=== PATIENT | male | born 1955 | race Caucasian/White ===

== ENCOUNTER 2016-12-17 22:56 | Emergency (ER) | payer OTHER ==
[~2016-12-17] VITALS: Ht 182.9 cm; Wt 96.8 kg
[2016-12-17 23:04] VITALS: BP 157/95
[2016-12-17] MEDS ORDERED: DEXAMETHASONE 4 MG TABLET ONE (23:58)
[2016-12-18] MEDS ORDERED: DEXAMETHASONE 4 MG TABLET PO ONE
== END 2016-12-18 00:42 | disposition home or self-care (01) ==
LOC: ED 23:19
DX: S16.1XXA Strain of muscle, fascia and tendon at neck level, initial encounter (principal); S50.02XA Contusion of left elbow, initial encounter; I48.91 Unspecified atrial fibrillation; G89.29 Other chronic pain; K21.9 Gastro-esophageal reflux disease without esophagitis; Y04.2XXA Assault by strike against or bumped into by another person, initial encounter
CPT/HCPCS: 72125; 99284

== ENCOUNTER → 2020-12-08 | Outpatient (CLI) | payer OTHER ==
[~2020-12-08] MED LIST: REGADENOSON 0.4 MG/5 ML SYRINGE ONE
== END | disposition home or self-care (01) ==
LOC: CFH 07:56
PROVIDERS: ATTEND Internal Medicine Cardiovascular Disease
DX: I10 Essential (primary) hypertension (principal); I25.10 Atherosclerotic heart disease of native coronary artery without angina pectoris; I48.0 Paroxysmal atrial fibrillation
CPT/HCPCS: 78452; 93017; A9502; J2785